=== PATIENT | male | born 1965 | race Caucasian/White ===

== ENCOUNTER 2017-02-28 11:37 | Emergency (ER) | payer OTHER ==
[~2017-02-28] VITALS: Ht 190.5 cm; Wt 144.0 kg
[2017-02-28] MEDS ORDERED: NITROGLYCERIN SINGLE TAB 0.4 MG SL PRN (12:00)
[2017-02-28] MEDS ORDERED: ASPIRIN 81 MG TABLET CHEW PO ONE (12:00)
[2017-02-28] MEDS ORDERED: SODIUM CHLORIDE FLUSH 10ML SYR IVF ONE (12:00)
[2017-02-28] MEDS ORDERED: METF500T9 PO (12:15)
[2017-02-28] MEDS ORDERED: NAPR500T3 PO (12:15)
[2017-02-28 12:25] LABS: BLOOD UREA NITROGEN 20 mg/dL (7-18)
[2017-02-28] MEDS ORDERED: NITROGLYCERIN SINGLE TAB 0.4 MG SL ONE (12:29)
[2017-02-28] MEDS ORDERED: ASPIRIN 81 MG TABLET CHEW ONE (12:30)
[2017-02-28 12:32] LABS: IS PT STATUS REG ER OR PRE ER? YES
[2017-02-28 12:40] VITALS: BP 126/84
== END 2017-02-28 13:29 | disposition home or self-care (01) ==
LOC: ED 12:20
DX: R07.89 Other chest pain (principal); E11.65 Type 2 diabetes mellitus with hyperglycemia
CPT/HCPCS: 36415; 71010; 80048; 82040; 83880; 84484; 85025; 93005; 99285